=== PATIENT | female | born 1995 | race Caucasian/White ===

== ENCOUNTER 2021-12-02 15:18 | Emergency (ER) | payer OTHER ==
[~2021-12-02 15:18] MED LIST: BENTYL 20MG TAB20 MG PO; NORCO 5-325 TA1 EACH PO; ZOFRAN ODT 4 MG4 MG PO
[2021-12-02 17:13] LABS: HEMOGLOBIN 13.5 gm/dl (12.3-15.3); RED BLOOD COUNT 4.61 M/UL (4.00-5.10); WHITE BLOOD COUNT 6.8 K/UL (4.5-11.0)
[2021-12-02 17:27] LABS: BUN/CREATININE RATIO 17 (0-10)
== END 2021-12-02 19:10 | disposition home or self-care (01) ==
LOC: ER1 15:18
PROVIDERS: Physician Assistant
DX: K94.00 Colostomy complication, unspecified (principal)
CPT/HCPCS: 80053; 81001; 83690; 85025; 99283